=== PATIENT | female | born 1985 | race Caucasian/White ===

== ENCOUNTER 2017-07-18 08:19 | Emergency (ER) | payer OTHER ==
[~2017-07-18] VITALS: Ht 172.7 cm; Wt 83.9 kg
[2017-07-18] MEDS ORDERED: IBUP800 PO (10:52)
[2017-07-18] MEDS ORDERED: Crutch1 EACH MISC (10:52)
== END 2017-07-18 11:48 | disposition home or self-care (01) ==
LOC: ER 08:19
DX: S82.851A Displaced trimalleolar fracture of right lower leg, initial encounter for closed fracture (principal); W00.1XXA Fall from stairs and steps due to ice and snow, initial encounter
CPT/HCPCS: 29515; 73590; 73600; 73610; 99283